=== PATIENT | female | born 1955 | race Two or more races ===

== ENCOUNTER 2023-02-09 16:40 | Inpatient (IN) | payer OTHER ==
[~2023-02-09] VITALS: Ht 149.9 cm; Wt 52.6 kg
[2023-02-09] MEDS ORDERED: IPRATROPIUM BROM 0.5 MG/2.5ML INH SOL NEB ONE (17:15)
[2023-02-09] MEDS ORDERED: methylPREDNISolone SOD SUCC 125 MG/2 ML VL IV ONE (17:15)
[2023-02-09] MEDS ORDERED: DOXYCYCLINE 100MG/250ML 250 ML IV ONE (17:15)
[2023-02-09] MEDS ORDERED: ALBUTEROL SULF 2.5 MG/0.5ML(0.5%) NEB SOLN NEB ONE (17:15)
[2023-02-09] MEDS: MAGNESIUM SULFATE 1GM/100ML 100 ML IV SCH ×2 (17:24→18:24)
[2023-02-09 17:55] VITALS: BP 174/142
[2023-02-09 18:09] LABS: Albumin 3.9 g/dL (3.4-5.0); Calcium 8.8 mg/dL (8.5-10.1); Potassium 4.5 mmol/L (3.5-5.1)
[2023-02-09 18:12] LABS: BUN/Creatinine Ratio 20.5 (10.0-20.0); Basophils # (auto) 0 10 ^3/uL (0-0.2); Basophils % (auto) 0.2 % (0.0-2.0); Bilirubin, Total 0.6 mg/dL (0.2-1.0); Eosinophils # (auto) 0 10 ^3/uL (0-0.8); Eosinophils % (auto) 0.1 % (0.0-7.0); Hematocrit 40.5 % (36.0-46.0); Hemoglobin 13.8 g/dL (12.2-16.2); Lymphocytes # (auto) 0.6 10 ^3/uL (0.4-5.4); Lymphocytes % (auto) 5.5 % (10.0-50.0); Mean Corpuscular Hemoglobin 31.8 pg (28.0-32.0); Mean Corpuscular Volume 93.6 fL (80.0-100.0); Monocytes % (auto) 9.1 % (0.0-12.0); Neutrophils # (auto) 9.2 10 ^3/uL (1.6-8.6); Neutrophils % (auto) 85.1 % (37.0-80.0); Red Blood Cells 4.33 10^6/uL (4.0-5.20); Red Cell Distribution Width 13.9 % (11.8-14.3); Total Protein 6.7 g/dL (6.4-8.2); White Blood Cell 10.8 10^3/uL (4.4-10.8)
[2023-02-09 19:46] VITALS: BP 106/65
[2023-02-09] MEDS ORDERED: NITROGLYCERIN 0.4 MG SL TAB SL PRN (20:30)
[2023-02-09] MEDS ORDERED: ACETAMINOPHEN 325 MG TAB PO PRN (20:30)
[2023-02-09] MEDS ORDERED: DOCUSATE SOD 100 MG CAP PO PRN (20:30)
[2023-02-09] MEDS ORDERED: ONDANSETRON HCL 4 MG/2 ML VIAL IV PRN (20:30)
[2023-02-09] MEDS ORDERED: MORPHINE SULFATE INJ 2 MG/ml SYRG IV PRN (20:30)
[2023-02-09] MEDS ORDERED: ALPR0.5T8 PO (20:47)
[2023-02-09] MEDS ORDERED: GAB100C PO (20:47)
[2023-02-09] MEDS ORDERED: ALBUTEROL SULF 2.5 MG/0.5ML(0.5%) NEB SOLN NEB PRN (22:00)
[2023-02-09] MEDS ORDERED: IPRATROPIUM BROM 0.5 MG/2.5ML INH SOL NEB PRN (22:00)
[2023-02-09] MEDS: methylPREDNISolone SOD SUCC 40 MG/ML VL IV SCH (22:06)
[2023-02-09] MEDS: SODIUM CHLOR 0.9% PF (SALINE LOCK) 10ML VIAL/SYR IV SCH (22:06)
[2023-02-09 22:39] VITALS: BP 103/67
[2023-02-09 23:08] VITALS: BP 103/67
[2023-02-09 23:30] VITALS: BP 104/65
[2023-02-10] VITALS (10 sets, daily range): BP systolic 92–116; BP diastolic 58–72
[2023-02-10] MEDS ORDERED: HEPARIN SODIUM (PORCINE) 5000 UNITS/ML 1ML VIAL IV ONE (02:00)
[2023-02-10 03:11] LABS: INR 1.01 (0.9-1.15); Partial Thromboplastin Time 29.6 sec (24.6-33.4)
[2023-02-10] MEDS: HEPARIN DRIP/D5W 100UNITS/ML 250 ML IV SCH (04:01)
[2023-02-10] MEDS: ALPRAZolam 0.5 MG TAB PO PRN (05:22)
[2023-02-10] MEDS: SODIUM CHLOR 0.9% PF (SALINE LOCK) 10ML VIAL/SYR IV SCH ×3 (06:01→22:31)
[2023-02-10 06:09] LABS: Basophils # (auto) 0 10 ^3/uL (0-0.2); Basophils % (auto) 0.2 % (0.0-2.0); Eosinophils # (auto) 0 10 ^3/uL (0-0.8); Hemoglobin 14.3 g/dL (12.2-16.2); Lymphocytes # (auto) 0.5 10 ^3/uL (0.4-5.4); Lymphocytes % (auto) 6.1 % (10.0-50.0); Mean Corpuscular Hemoglobin 31.7 pg (28.0-32.0); Mean Corpuscular Hgb Conc. 34.1 g/dL (32.0-36.0); Monocytes # (auto) 0.2 10 ^3/uL (0-1.3); Monocytes % (auto) 2.1 % (0.0-12.0); Neutrophils # (auto) 7.4 10 ^3/uL (1.6-8.6); Neutrophils % (auto) 91.6 % (37.0-80.0); Nucleated Red Blood Cells % 0.1 %; Red Blood Cells 4.52 10^6/uL (4.0-5.20); Red Cell Distribution Width 13.8 % (11.8-14.3); White Blood Cell 8.1 10^3/uL (4.4-10.8)
[2023-02-10 06:25] LABS: Potassium 4.7 mmol/L (3.5-5.1)
[2023-02-10 06:35] LABS: Albumin 3.6 g/dL (3.4-5.0); BUN/Creatinine Ratio 23.4 (10.0-20.0); Calcium 9.2 mg/dL (8.5-10.1); Magnesium 2.7 mg/dL (1.6-2.6)
[2023-02-10 06:35] LABS: Urine Bacteria NONE SEEN /hpf (None Seen); Urine Blood Negative /uL (Negative); Urine Hyaline Cast MANY /lpf (0 - 2); Urine Mucus FEW (None Seen); Urine Specific Gravity 1.011 (1.001-1.035); Urine WBC 2 /hpf (0 - 5)
[2023-02-10 06:37] LABS: Bilirubin, Total 0.5 mg/dL (0.2-1.0); Total Protein 7.2 g/dL (6.4-8.2)
[2023-02-10 08:55] LABS: INR 1.07 (0.9-1.15); Partial Thromboplastin Time 64.6 sec (24.6-33.4)
[2023-02-10] MEDS ORDERED: methylPREDNISolone SOD SUCC 125 MG/2 ML VL ONE (11:36)
[2023-02-10] MEDS: GABAPENTIN 100 MG CAP PO SCH (11:39)
[2023-02-10] MEDS: methylPREDNISolone SOD SUCC 40 MG/ML VL IV SCH ×2 (11:39→22:31)
[2023-02-10 12:09] LABS: INR 1.04 (0.9-1.15); Partial Thromboplastin Time 36.5 sec (24.6-33.4)
[2023-02-10 13:29] LABS: INR 1.03 (0.9-1.15); Partial Thromboplastin Time 42.7 sec (24.6-33.4)
[2023-02-10 19:02] LABS: INR 1.06 (0.9-1.15)
[2023-02-10 19:06] LABS: Partial Thromboplastin Time 74.9 sec (24.6-33.4)
[2023-02-11 00:53] LABS: INR 1.07 (0.9-1.15); Partial Thromboplastin Time 68.5 sec (24.6-33.4)
[2023-02-11 02:40] VITALS: BP 114/65
[2023-02-11] MEDS: ALPRAZolam 0.5 MG TAB PO PRN ×2 (02:44→13:54)
[2023-02-11] MEDS: HEPARIN DRIP/D5W 100UNITS/ML 250 ML IV SCH ×2 (04:00→14:32)
[2023-02-11 05:00] VITALS: BP 92/54
[2023-02-11] MEDS: SODIUM CHLOR 0.9% PF (SALINE LOCK) 10ML VIAL/SYR IV SCH ×3 (05:55→21:53)
[2023-02-11 07:31] LABS: INR 1.08 (0.9-1.15)
[2023-02-11 07:36] LABS: Partial Thromboplastin Time 82.4 sec (24.6-33.4)
[2023-02-11] MEDS: GABAPENTIN 100 MG CAP PO SCH (08:50)
[2023-02-11] MEDS: methylPREDNISolone SOD SUCC 40 MG/ML VL IV SCH ×2 (08:51→21:52)
[2023-02-11 09:00] VITALS: BP 105/55
[2023-02-11 12:00] VITALS: BP 101/61
[2023-02-11] MEDS ORDERED: ASPirin 81 mg TAB PO ONE (13:00)
[2023-02-11 14:05] LABS: INR 1.07 (0.9-1.15); Partial Thromboplastin Time 47.3 sec (24.6-33.4)
[2023-02-11 16:00] VITALS: BP 94/69
[2023-02-11] MEDS: FUROSEMIDE 40 MG/4 ML VIAL IV SCH (17:35)
[2023-02-11 21:50] LABS: INR 1.12 (0.9-1.15); Partial Thromboplastin Time 66.3 sec (24.6-33.4)
[2023-02-11] MEDS: ATORVASTATIN 20 MG TAB PO SCH (21:53)
[2023-02-11 22:00] VITALS: BP 110/55
[2023-02-12] MEDS ORDERED: ALBU108A5 INH (03:06)
[2023-02-12] MEDS ORDERED: TRAZ-228 PO (03:06)
[2023-02-12] MEDS ORDERED: BENZ100C97 PO (03:06)
[2023-02-12 03:40] LABS: INR 1.13 (0.9-1.15); Partial Thromboplastin Time 67.1 sec (24.6-33.4)
[2023-02-12] MEDS: FUROSEMIDE 40 MG/4 ML VIAL IV SCH ×2 (05:40→17:31)
[2023-02-12] MEDS: SODIUM CHLOR 0.9% PF (SALINE LOCK) 10ML VIAL/SYR IV SCH ×3 (05:44→21:20)
[2023-02-12 06:05] VITALS: BP 91/62
[2023-02-12 08:39] VITALS: BP 103/64
[2023-02-12] MEDS: GABAPENTIN 100 MG CAP PO SCH (09:17)
[2023-02-12] MEDS: methylPREDNISolone SOD SUCC 40 MG/ML VL IV SCH ×2 (09:17→21:20)
[2023-02-12] MEDS: ASPirin 81 mg TAB PO SCH (09:17)
[2023-02-12] MEDS: ALPRAZolam 0.5 MG TAB PO PRN ×2 (09:17→21:20)
[2023-02-12 09:27] LABS: INR 1.13 (0.9-1.15)
[2023-02-12 09:32] LABS: Partial Thromboplastin Time 88.3 sec (24.6-33.4)
[2023-02-12] MEDS ORDERED: HEPARIN DRIP/D5W 100UNITS/ML 250 ML IV SCH (10:15)
[2023-02-12 13:00] VITALS: BP 101/64
[2023-02-12 17:00] VITALS: BP 104/56
[2023-02-12 17:14] LABS: Cholesterol 179 mg/dL (< 200); HDL Cholesterol 50 mg/dL (40-59); LDL Cholesterol 105 mg/dL (< 100); Triglycerides 142 mg/dL (< 150)
[2023-02-12] MEDS: HEPARIN DRIP/D5W 100UNITS/ML 250 ML IV SCH (20:59)
[2023-02-12] MEDS: ATORVASTATIN 20 MG TAB PO SCH (21:20)
[2023-02-12 23:35] LABS: INR 1.12 (0.9-1.15); Partial Thromboplastin Time 59.7 sec (24.6-33.4)
[2023-02-13] VITALS (11 sets, daily range): BP systolic 92–111; BP diastolic 42–66
[2023-02-13] MEDS: HEPARIN DRIP/D5W 100UNITS/ML 250 ML IV SCH (00:08)
[2023-02-13] MEDS: FUROSEMIDE 40 MG/4 ML VIAL IV SCH ×2 (06:00→18:00)
[2023-02-13] MEDS: SODIUM CHLOR 0.9% PF (SALINE LOCK) 10ML VIAL/SYR IV SCH ×3 (06:05→21:52)
[2023-02-13 06:57] LABS: INR 1.13 (0.9-1.15)
[2023-02-13 06:59] LABS: Partial Thromboplastin Time 80.9 sec (24.6-33.4)
[2023-02-13] MEDS ORDERED: HEPARIN DRIP/D5W 100UNITS/ML 250 ML IV SCH (07:15)
[2023-02-13] MEDS: GABAPENTIN 100 MG CAP PO SCH (09:51)
[2023-02-13] MEDS: methylPREDNISolone SOD SUCC 40 MG/ML VL IV SCH ×2 (09:51→21:51)
[2023-02-13] MEDS: ASPirin 81 mg TAB PO SCH (09:51)
[2023-02-13] MEDS ORDERED: IODIXANOL 320MG/ML 100ML BTL IV ONE ×2 (13:51→14:27)
[2023-02-13] MEDS ORDERED: LIDOCAINE 2%HCL (LOCAL ANESTH.) INJ 20ML MDV ONE (13:51)
[2023-02-13] MEDS ORDERED: VERAPAMIL 2.5MG/ML INJ 2ML VIAL IV ONE (13:57)
[2023-02-13] MEDS ORDERED: fentaNYL CITRATE 100 MCG/2 ML VL ONE (13:57)
[2023-02-13] MEDS ORDERED: MIDAZOLAM HCL 2MG/2ML 2ml VIAL (1mg/ml) ONE (13:58)
[2023-02-13] MEDS ORDERED: SODIUM CHL 0.9% 0 ML ONE (14:15)
[2023-02-13] MEDS ORDERED: ANGIOMAX 250 MG VIAL IV ONE (14:15)
[2023-02-13] MEDS ORDERED: HEPARIN SODIUM (PORCINE) 5000 UNITS/ML 1ML VIAL ONE (14:31)
[2023-02-13] MEDS: ALPRAZolam 0.5 MG TAB PO PRN (21:52)
[2023-02-13] MEDS: ATORVASTATIN 20 MG TAB PO SCH (21:52)
[2023-02-14 05:00] VITALS: BP 95/47
[2023-02-14] MEDS: FUROSEMIDE 40 MG/4 ML VIAL IV SCH ×2 (05:41→18:09)
[2023-02-14] MEDS: SODIUM CHLOR 0.9% PF (SALINE LOCK) 10ML VIAL/SYR IV SCH ×3 (05:42→21:20)
[2023-02-14 09:00] VITALS: BP 92/60
[2023-02-14] MEDS: methylPREDNISolone SOD SUCC 40 MG/ML VL IV SCH ×2 (10:01→21:19)
[2023-02-14] MEDS: ASPirin 81 mg TAB PO SCH (10:01)
[2023-02-14] MEDS: GABAPENTIN 100 MG CAP PO SCH (10:01)
[2023-02-14] MEDS: ALPRAZolam 0.5 MG TAB PO PRN (10:12)
[2023-02-14 13:00] VITALS: BP 101/54
[2023-02-14] MEDS ORDERED: METH4PAK PO (15:50)
[2023-02-14 17:00] VITALS: BP 112/66
[2023-02-14] MEDS: ATORVASTATIN 20 MG TAB PO SCH (21:19)
[2023-02-14 22:00] VITALS: BP 98/55
[2023-02-15 05:00] VITALS: BP 92/49
[2023-02-15] MEDS: FUROSEMIDE 40 MG/4 ML VIAL IV SCH (05:58)
[2023-02-15] MEDS: SODIUM CHLOR 0.9% PF (SALINE LOCK) 10ML VIAL/SYR IV SCH ×2 (06:41→14:17)
[2023-02-15 09:00] VITALS: BP 91/53
[2023-02-15] MEDS: ASPirin 81 mg TAB PO SCH (10:27)
[2023-02-15] MEDS: methylPREDNISolone SOD SUCC 40 MG/ML VL IV SCH (10:27)
[2023-02-15] MEDS: GABAPENTIN 100 MG CAP PO SCH (10:27)
[2023-02-15] MEDS: ALPRAZolam 0.5 MG TAB PO PRN (10:31)
[2023-02-15 13:00] VITALS: BP 90/55
== END 2023-02-15 16:00 | disposition home or self-care (01) | DRG 189 ==
LOC: EDBD 16:40 → ER 16:40 → TELE 20:46 → TELE-WESTW 02-10 21:41
PROVIDERS: ADMIT Nurse Practitioner Family; ATTEND Internal Medicine
PROC: 5A09457 Assistance with Respiratory Ventilation, 24-96 Consecutive Hours, Continuous Positive Airway Pressure (ICD-10-PCS; 2023-02-09)
PROC: 4A023N7 Measurement of Cardiac Sampling and Pressure, Left Heart, Percutaneous Approach (ICD-10-PCS; principal; 2023-02-13)
PROC: B211YZZ Fluoroscopy of Multiple Coronary Arteries using Other Contrast (ICD-10-PCS; 2023-02-13)
PROC: B215YZZ Fluoroscopy of Left Heart using Other Contrast (ICD-10-PCS; 2023-02-13)
DX: J96.21 Acute and chronic respiratory failure with hypoxia (principal); I21.A1 Myocardial infarction type 2; J44.1 Chronic obstructive pulmonary disease with (acute) exacerbation; J98.11 Atelectasis; C34.11 Malignant neoplasm of upper lobe, right bronchus or lung; E78.5 Hyperlipidemia, unspecified; F17.210 Nicotine dependence, cigarettes, uncomplicated; I25.10 Atherosclerotic heart disease of native coronary artery without angina pectoris; F41.9 Anxiety disorder, unspecified; Z91.199 Patient's noncompliance with other medical treatment and regimen due to unspecified reason; Z85.118 Personal history of other malignant neoplasm of bronchus and lung; Z92.21 Personal history of antineoplastic chemotherapy; Z82.49 Family history of ischemic heart disease and other diseases of the circulatory system; Z82.5 Family history of asthma and other chronic lower respiratory diseases; Z92.3 Personal history of irradiation
CPT/HCPCS: 36415; 36600; 71045; 80053; 80061; 81001; 82805; 83735; 84484; 85025; 85610; 85730; 86850; 86900; 86901; 93005; 93306; 93458; 94640; 94660; 96365; 96366; 96367; 96368; 96375; 99152; G0378; J2250; J3490; Q9967

== ENCOUNTER 2023-07-18 03:36 | Inpatient (IN) | payer OTHER ==
[~2023-07-18] VITALS: Ht 160 cm; Wt 50.8 kg
[2023-07-18] VITALS (8 sets, daily range): BP systolic 126; BP diastolic 52; PULSE 89–116; RESP 16–25; TEMP 97.8; O2SAT 94–100
[~2023-07-18 03:36] MED LIST: ALBU108A5 INH; ALPR0.5T8 PO; BENZ100C97 PO; GAB100C PO; METH4PAK PO; TRAZ-228 PO
[2023-07-18] MEDS ORDERED: IPRATROPIUM BROM 0.5 MG/2.5ML INH SOL NEB ONE ×2 (04:00→08:30)
[2023-07-18] MEDS ORDERED: ALBUTEROL MEDNEB 2.5 mg/3ml NEB NEB ONE ×2 (04:00→08:30)
[2023-07-18 04:39] LABS: Basophils # (auto) 0 10 ^3/uL (0-0.2); Basophils % (auto) 0.4 % (0.0-2.0); Eosinophils # (auto) 0 10 ^3/uL (0-0.8); Hematocrit 44.4 % (36.0-46.0); Hemoglobin 14.5 g/dL (12.2-16.2); Lymphocytes # (auto) 0.5 10 ^3/uL (0.4-5.4); Lymphocytes % (auto) 8.3 % (10.0-50.0); Mean Corpuscular Hemoglobin 30.3 pg (28.0-32.0); Mean Corpuscular Hgb Conc. 32.6 g/dL (32.0-36.0); Monocytes # (auto) 0.6 10 ^3/uL (0-1.3); Neutrophils # (auto) 4.6 10 ^3/uL (1.6-8.6); Neutrophils % (auto) 80.3 % (37.0-80.0); Nucleated Red Blood Cells % 0.2 %; Red Blood Cells 4.78 10^6/uL (4.0-5.20); Red Cell Distribution Width 14.1 % (11.8-14.3); White Blood Cell 5.7 10^3/uL (4.4-10.8)
[2023-07-18 04:48] LABS: INR 1.05 (0.9-1.15); Partial Thromboplastin Time 28.8 SEC (24.5-34.5)
[2023-07-18 04:51] LABS: Alanine Aminotransferase 12 U/L (7-40); Albumin 4.8 g/dL (3.2-4.8); Alkaline Phosphatase 108 U/L (46-116); Anion Gap 11 (5-15); Aspartate Aminotransferase 18 U/L (13-40); BUN/Creatinine Ratio 12.3 (10.0-20.0); Blood Urea Nitrogen 9 mg/dL (9-23); Calcium 9.1 mg/dL (8.7-10.4); Carbon Dioxide 24 mmol/L (20-30); Chloride 99 mmol/L (98-107); Glucose 116 mg/dL (74-106); Potassium 4.7 mmol/L (3.5-5.1); Sodium 134 mmol/L (136-145)
[2023-07-18 04:52] LABS: Bilirubin, Total 0.4 mg/dL (0.2-1.0); Total Protein 7.3 g/dL (5.7-8.2)
[2023-07-18] MEDS ORDERED: ONDANSETRON HCL 4 MG/2 ML VIAL IV ONE (05:45)
[2023-07-18] MEDS ORDERED: MORPHINE SULFATE 4 MG/ML SYR/VIAL IV ONE (05:45)
[2023-07-18] MEDS ORDERED: DexAMETHasone SOD PHOS 10MG/1ML VIAL INJ IV ONE (06:00)
[2023-07-18] MEDS ORDERED: methylPREDNISolone SOD SUCC 125 MG/2 ML VL IV ONE (08:30)
[2023-07-18] MEDS ORDERED: ENOXAPARIN SOD 60 MG/0.6 ML SYRINGE SC ONE (08:30)
[2023-07-18] MEDS ORDERED: IOHEXOL 350 MG/ML 100ML IJ ONE (09:46)
[2023-07-18] MEDS ORDERED: NITROGLYCERIN 0.4 MG SL TAB SL PRN (11:45)
[2023-07-18] MEDS ORDERED: ONDANSETRON HCL 4 MG/2 ML VIAL IV PRN (11:45)
[2023-07-18] MEDS ORDERED: HYDROcodone-ACET 5/325MG TAB PO PRN (11:45)
[2023-07-18] MEDS ORDERED: MORPHINE SULFATE INJ 2 MG/ml SYRG IV PRN (11:45)
[2023-07-18] MEDS ORDERED: ACETAMINOPHEN 325 MG TAB PO PRN (11:45)
[2023-07-18] MEDS: methylPREDNISolone SOD SUCC 40 MG/ML VL IV SCH ×2 (12:00→18:23)
[2023-07-18 12:21] LABS: Triglycerides 97 mg/dL (< 150)
[2023-07-18 12:22] LABS: LDL Cholesterol 120 mg/dL (< 100)
[2023-07-18 12:23] LABS: HDL Cholesterol 46 mg/dL (40-59)
[2023-07-18 12:24] LABS: Cholesterol 171 mg/dL (< 200)
[2023-07-18] MEDS: IPRATROPIUM BROM 0.5 MG/2.5ML INH SOL NEB SCH ×3 (14:12→22:07)
[2023-07-18] MEDS: ALBUTEROL MEDNEB 2.5 mg/3ml NEB NEB SCH ×3 (14:12→22:07)
[2023-07-18] MEDS: ATORVASTATIN 20 MG TAB PO SCH (22:27)
[2023-07-18] MEDS: ENOXAPARIN SOD 60 MG/0.6 ML SYRINGE SC SCH (22:27)
[2023-07-18] MEDS ORDERED: SODIUM CHLORIDE 0.9% 500 ML IV ONE (22:30)
[2023-07-19] VITALS (19 sets, daily range): BP systolic 99–126; BP diastolic 49–68; PULSE 69–99; RESP 16–21; TEMP 36.6; O2SAT 94–99
[2023-07-19] MEDS: methylPREDNISolone SOD SUCC 40 MG/ML VL IV SCH ×4 (00:15→20:06)
[2023-07-19] MEDS ORDERED: PRED10TA PO (03:00)
[2023-07-19 06:15] LABS: Basophils # (auto) 0 10 ^3/uL (0-0.2); Basophils % (auto) 0.1 % (0.0-2.0); Eosinophils # (auto) 0 10 ^3/uL (0-0.8); Hematocrit 38.4 % (36.0-46.0); Hemoglobin 12.7 g/dL (12.2-16.2); Lymphocytes # (auto) 0.4 10 ^3/uL (0.4-5.4); Lymphocytes % (auto) 7.2 % (10.0-50.0); Mean Corpuscular Hemoglobin 30.2 pg (28.0-32.0); Mean Corpuscular Hgb Conc. 33.2 g/dL (32.0-36.0); Mean Corpuscular Volume 90.8 fL (80.0-100.0); Monocytes # (auto) 0.3 10 ^3/uL (0-1.3); Monocytes % (auto) 5.6 % (0.0-12.0); Neutrophils # (auto) 4.9 10 ^3/uL (1.6-8.6); Neutrophils % (auto) 87.1 % (37.0-80.0); Red Blood Cells 4.23 10^6/uL (4.0-5.20); White Blood Cell 5.6 10^3/uL (4.4-10.8)
[2023-07-19 06:21] LABS: Chloride 99 mmol/L (98-107); Potassium 4.6 mmol/L (3.5-5.1); Sodium 133 mmol/L (136-145)
[2023-07-19 06:22] LABS: Anion Gap 6 (5-15); Calcium 8.9 mg/dL (8.7-10.4); Carbon Dioxide 28 mmol/L (20-30)
[2023-07-19] MEDS: IPRATROPIUM BROM 0.5 MG/2.5ML INH SOL NEB SCH ×5 (06:26→22:13)
[2023-07-19] MEDS: ALBUTEROL MEDNEB 2.5 mg/3ml NEB NEB SCH ×3 (06:26→14:12)
[2023-07-19 06:27] LABS: BUN/Creatinine Ratio 25.7 (10.0-20.0); Blood Urea Nitrogen 18 mg/dL (9-23); Glucose 113 mg/dL (74-106)
[2023-07-19] MEDS: ENOXAPARIN SOD 60 MG/0.6 ML SYRINGE SC SCH ×2 (09:24→21:26)
[2023-07-19] MEDS: cefTRIAXone 1GM/50ML D5W 50 ML IV SCH (09:30)
[2023-07-19] MEDS: ASPirin 81 mg TAB PO SCH (09:30)
[2023-07-19] MEDS: FAMOTIDINE 20 MG TAB PO SCH (09:30)
[2023-07-19 11:22] LABS: Urine Bacteria FEW /hpf (None Seen); Urine Blood TRACE /uL (Negative); Urine Clarity Clear (Clear); Urine Protein, UAD Negative (Negative); Urine Urobilinogen Normal (Negative); Urine WBC 1 /hpf (0 - 5)
[2023-07-19 11:23] LABS: Urine Color STRAW (Yellow)
[2023-07-19] MEDS ORDERED: DEXTROSE (50%) 50ML SYRG IV PRN (14:45)
[2023-07-19] MEDS ORDERED: ALBUTEROL SULF HFA 90MCG INH 200DOSE IN PRN (15:00)
[2023-07-19] MEDS: THROAT LOZENGES(CEPASTAT) MT PRN ×2 (16:33→21:51)
[2023-07-19] MEDS: ALPRAZolam 0.5 MG TAB PO PRN (16:34)
[2023-07-19 17:29] LABS: Rapid Influenza A Negative (Negative); Rapid Influenza B Negative (Negative)
[2023-07-19 18:55] LABS: COVID19 ANTIGEN SOFIA FIA NEGATIVE (NEGATIVE)
[2023-07-19] MEDS: ACCU-CHEK COMFORT CURVE STRIP VI SCH (19:02)
[2023-07-19] MEDS: InsuLIN REG 1unit/0.01ml Soln (100units/ml) SC SCH (19:03)
[2023-07-19 20:17] LABS: Rapid Strep A Screen-Throat Negative
[2023-07-19] MEDS: ATORVASTATIN 20 MG TAB PO SCH (21:25)
[2023-07-19] MEDS: GABAPENTIN 100 MG CAP PO SCH (21:26)
[2023-07-19 22:28] LABS: Respiratory Syncytial Virus Ag Negative
[2023-07-20] VITALS (13 sets, daily range): BP systolic 89–109; BP diastolic 40–65; PULSE 66–108; RESP 16–20; TEMP 36.8; O2SAT 94–97
[2023-07-20] MEDS: ACCU-CHEK COMFORT CURVE STRIP VI SCH ×3 (00:12→11:32)
[2023-07-20] MEDS: InsuLIN REG 1unit/0.01ml Soln (100units/ml) SC SCH ×3 (00:26→11:33)
[2023-07-20] MEDS: methylPREDNISolone SOD SUCC 40 MG/ML VL IV SCH ×2 (03:46→11:36)
[2023-07-20] MEDS: THROAT LOZENGES(CEPASTAT) MT PRN ×2 (06:50→14:52)
[2023-07-20] MEDS: ALBUTEROL MEDNEB 2.5 mg/3ml NEB NEB PRN ×2 (07:08→14:51)
[2023-07-20] MEDS: IPRATROPIUM BROM 0.5 MG/2.5ML INH SOL NEB SCH ×3 (07:08→14:52)
[2023-07-20] MEDS: cefTRIAXone 1GM/50ML D5W 50 ML IV SCH (09:03)
[2023-07-20] MEDS: FAMOTIDINE 20 MG TAB PO SCH (10:07)
[2023-07-20] MEDS: GABAPENTIN 100 MG CAP PO SCH (10:07)
[2023-07-20] MEDS: ASPirin 81 mg TAB PO SCH (10:07)
[2023-07-20] MEDS: ENOXAPARIN SOD 60 MG/0.6 ML SYRINGE SC SCH (10:07)
[2023-07-20] MEDS: ALPRAZolam 0.5 MG TAB PO PRN (10:12)
[2023-07-20] MEDS ORDERED: ATOR20TA50 PO (13:13)
[2023-07-20] MEDS ORDERED: IPRA0.00 IN (13:13)
[2023-07-20] MEDS ORDERED: ASPI-325 PO (13:13)
[2023-07-20] MEDS ORDERED: DOXY1CAP57 PO (13:13)
[2023-07-20] MEDS ORDERED: SPIR25TA PO (13:13)
[2023-07-20] MEDS ORDERED: PRED20TA2 PO (13:13)
== END 2023-07-20 15:30 | disposition home or self-care (01) | DRG 280 ==
LOC: EDBD 03:36 → ER 03:36 → TELE 11:49 → TELE-WESTW 07-19 02:45
PROVIDERS: ADMIT Hospitalist; ATTEND Hospitalist
DX: I21.4 Non-ST elevation (NSTEMI) myocardial infarction (principal); I50.23 Acute on chronic systolic (congestive) heart failure; J96.01 Acute respiratory failure with hypoxia; J44.1 Chronic obstructive pulmonary disease with (acute) exacerbation; C34.90 Malignant neoplasm of unspecified part of unspecified bronchus or lung; J43.9 Emphysema, unspecified; R54 Age-related physical debility; Z20.822 Contact with and (suspected) exposure to COVID-19; Z82.5 Family history of asthma and other chronic lower respiratory diseases; Z82.49 Family history of ischemic heart disease and other diseases of the circulatory system
CPT/HCPCS: 36415; 36600; 71045; 71275; 80048; 80053; 80061; 81001; 82805; 82962; 83880; 84484; 85025; 85379; 85610; 85730; 87070; 87426; 87804; 87807; 87880; 93005; 93306; 94640; 97110; 97116; 97163; 97530; 99291; G0378; J0696; J1100; J1815; J2405